=== PATIENT | male | born 1970 | race Caucasian/White ===

== ENCOUNTER 2017-03-04 13:36 | Outpatient (CLI) | payer MEDICAID ==
[~2017-03-04] VITALS: Ht 177.8 cm; Wt 91.8 kg
[2017-03-04 13:48] VITALS: BP 148/90; PULSE 83; RESP 18; Ht 177.8 cm; Wt 91.8 kg
[2017-03-04] MEDS ORDERED: LOSA1TAB20 PO (14:05)
[2017-03-04] MEDS ORDERED: LOSA25TA5 PO (14:05)
[2017-03-04] MEDS ORDERED: HYDR-906 PO (14:05)
[2017-03-04] MEDS ORDERED: IBUP-1542 PO (14:05)
--- NOTE | 2017-03-04 15:17 | PN ---
Date/Time of Note Date/Time of Note DATE: 03/04/17 TIME: 15:04 Assessment/Plan Assessment/Plan Assessment/Plan [facility] Progress Note Date of Service: 03/04/17 Today's Impression & Plan: Overall doing well post op without major issues. No major wound problems. Discussed ways to achieve healthier lifestyle. With above assessment, I've recommended the following for today: 1. F/u with PCP 2. F/u with us prn Thank you again for your great care of this very pleasant patient and wonderful family. If there are any questions, please feel free to call me at [phone]. TOTAL VISIT TIME: 20 minutes of which more than half was spent in [id number] discussion with the patient, possibly including family, as well as coordination of care between multiple physicians and providers. Disclaimer: Inadvertent spelling or grammatical errors are likely due to EHR/ dictation software use and do not reflect on the overall quality of patient care. Updated Clinical Summary: Very pleasant 46 y/o gentleman s/p lap appy at [facility] for acute appendicitis on 02/04/17. Comorbidities: 1. Acute appendicitis, s/p lap appy at [facility] for acute appendicitis on 02/05/17 2. Hypertension 3. BMI 29 Subjective: No major events or complaints; no abd pain and under control with medications; no n/v/d; no sob or cp; + flatus; + BM and normal; + activity Objective: Vitals: See below Exam: GENERAL: On exam, the patient was sitting in a chair and appeared to be comfortable and in no acute distress. ABDOMEN: Soft, nontender and nondistended. Incisions are clean, dry and intact without any evidence of erythema, edema, discharge, or hernia. There are no peritoneal signs or guarding. SKIN: Skin appears to be pink and feels warm to touch. NEUROLOGIC: Patient is awake, alert, and follows commands appropriately. Exam/Review of Systems Vital Signs Vitals Vital Signs Date Time Temp Pulse Resp B/P Pulse Ox O2 Delivery O2 Flow Rate FiO2 03/04/17 13:48 98.0 83 18 148/90 97 Room Air ROLAND GUY M.D. March 04, 2017 15:17
== END 2017-03-04 16:45 | disposition home or self-care (01) ==
LOC: HPC 13:36
PROVIDERS: ATTEND Transplant Surgery
DX: K35.80 Unspecified acute appendicitis (principal); I10 Essential (primary) hypertension
CPT/HCPCS: G0463